=== PATIENT | female | born 1990 | race Caucasian/White ===

== ENCOUNTER → 2018-08-06 14:14 | Observation (INO) ==
[2018-08-06 12:17] LABS: Basophils % 0.1 %; Eosinophils # 0.1 K/mcL (0.0-0.6); Eosinophils % 0.5 %; Hematocrit 34.8 % (35.3-44.9); Hemoglobin 11.5 g/dL (11.5-15.4); Immature Granulocytes % 0.7 % (0-4); Lymphocytes # 1.4 K/mcL (0.6-4.6); Lymphocytes % 13.8 %; Mean Corpuscular Hemoglobin 30.5 pg (28.0-33.3); Mean Corpuscular Volume 92.3 fL (83.0-100.0); Mean Platelet Volume 10.8 fL (9.4-12.4); Monocytes # 0.4 K/mcL (0.0-1.3); Monocytes % 4.3 %; Neutrophils # 7.9 K/mcL (1.6-8.9); Platelet Count 201 K/mcL (140-400); Red Blood Count 3.77 M/mcL (3.82-4.97); Red Cell Distribution Width 14.5 % (11.5-14.5); Segmented Neutrophils % 80.6 %
[2018-08-06 12:20] LABS: Protein/Creatinine Ratio,Urine 0.16 mg/mg (0.00-0.20)
[2018-08-06 12:21] LABS: Amphetamine Screen,Urine Negative ng/mL (Cutoff=1000); Barbiturate Screen,Urine Negative ng/mL (Cutoff=200); Benzodiazepines Screen,Urine Negative ng/mL (Cutoff=200); Cannabinoid Screen,Urine Negative ng/mL (Cutoff = 50); Cocaine Screen,Urine Negative ng/mL (Cutoff= 300); Opiate Screen,Urine Negative ng/mL (Cutoff=300); Phencyclidine Screen,Urine Negative ng/mL (Cutoff=25)
[2018-08-06 12:24] LABS: Alanine Aminotransferase 13 Units/L (7-52); Aspartate Amino Transferase 13 Units/L (13-39); BUN/Creatinine Ratio 13 (6-26); Blood Urea Nitrogen 9 mg/dL (6-20); Lactate Dehydrogenase 118 Units/L (140-271); Uric Acid 5.4 mg/dL (2.3-7.6); eGFR For Non-African Americans > 60 (> 60)
--- NOTE | 2018-08-06 13:23 | Discharge Summary ---
Date of Encounter: 08/06/18 Time of Encounter: 13:23 - Discharge Diagnosis (1) 38 weeks gestation of Priority: Primary Status: Acute Comments: admit for observation (2) Elevated BP without diagnosis of hypertension Priority: Secondary Status: Acute Comments: normal PIH labs Normal protein creat ratio BPs and labs reviewed with Dr. Hurtado. Dr. Hurtado recommends discharge home and follow up with Dr. Forte as scheduled. (3) NST (non-stress test) reactive on surveillance Priority: Secondary Status: Acute Comments: RNST FHR baseline 150 bpm moderate variability +15x15 accels no decels noted. - Discharge Medications Home Medications: HydrOXYzine Pamoate [Vistaril] 25 mg PO HS 08/06/18 [History] Pnv Cmb#21/Iron/Folic Acid [ Complete Caplet] 1 each PO DAILY 08/06/18 [History] Ranitidine HCl [Zantac 75] 75 mg PO DAILY PRN 08/06/18 [History] Allergies/Adverse Reactions: Allergy/AdvReac Type Severity Reaction Status Date / Time No Known Allergies Allergy Verified 08/06/18 12:12 Data Procedures and tests throughout hospitalization: Laboratory Tests 08/06/18 08/06/18 08/06/18 11:48 11:48 11:48 WBC 9.8 RBC 3.77 L Hgb 11.5 Hct 34.8 L MCV 92.3 MCH 30.5 MCHC 33.0 RDW 14.5 Plt Count 201 MPV 10.8 Immature Gran % 0.7 Seg Neutrophils % 80.6 Lymphocytes % 13.8 Monocytes % 4.3 Eosinophils % 0.5 Basophils % 0.1 Neutrophils # 7.9 Lymphocytes # 1.4 Monocytes # 0.4 Eosinophils # 0.1 Basophils # 0.0 BUN Creatinine Est GFR ( Amer) Est GFR (Non-Af Amer) BUN/Creatinine Ratio Uric Acid AST ALT Lactate Dehydrogenase Urine Creatinine 222 Protein/Creatinin Ratio 0.16 Urine Total Protein 36 H Urine Opiates Screen Negative Ur Barbiturates Screen Negative Ur Phencyclidine Scrn Negative Ur Amphetamines Screen Negative U Benzodiazepines Scrn Negative Urine Cocaine Screen Negative U Marijuana (THC) Screen Negative Ur Drug Screen Interp See Below 08/06/18 11:48 WBC RBC Hgb Hct MCV MCH MCHC RDW Plt Count MPV Immature Gran % Seg Neutrophils % Lymphocytes % Monocytes % Eosinophils % Basophils % Neutrophils # Lymphocytes # Monocytes # Eosinophils # Basophils # BUN 9 Creatinine 0.69 Est GFR ( Amer) > 60 Est GFR (Non-Af Amer) > 60 BUN/Creatinine Ratio 13 Uric Acid 5.4 AST 13 ALT 13 Lactate Dehydrogenase 118 L Urine Creatinine Protein/Creatinin Ratio Urine Total Protein Urine Opiates Screen Ur Barbiturates Screen Ur Phencyclidine Scrn Ur Amphetamines Screen U Benzodiazepines Scrn Urine Cocaine Screen U Marijuana (THC) Screen Ur Drug Screen Interp Labs on day of discharge: Labs from last 24 hours 08/06/18 08/06/18 08/06/18 11:48 11:48 11:48 WBC 9.8 RBC 3.77 L Hgb 11.5 Hct 34.8 L MCV 92.3 MCH 30.5 MCHC 33.0 RDW 14.5 Plt Count 201 MPV 10.8 Immature Gran % 0.7 Seg Neutrophils % 80.6 Lymphocytes % 13.8 Monocytes % 4.3 Eosinophils % 0.5 Basophils % 0.1 Neutrophils # 7.9 Lymphocytes # 1.4 Monocytes # 0.4 Eosinophils # 0.1 Basophils # 0.0 BUN 9 Creatinine 0.69 Est GFR ( Amer) > 60 Est GFR (Non-Af Amer) > 60 BUN/Creatinine Ratio 13 Uric Acid 5.4 AST 13 ALT 13 Lactate Dehydrogenase 118 L Urine Creatinine 222 Protein/Creatinin Ratio 0.16 Urine Total Protein 36 H Urine Opiates Screen Ur Barbiturates Screen Ur Phencyclidine Scrn Ur Amphetamines Screen U Benzodiazepines Scrn Urine Cocaine Screen U Marijuana (THC) Screen Ur Drug Screen Interp 08/06/18 11:48 WBC RBC Hgb Hct MCV MCH MCHC RDW Plt Count MPV Immature Gran % Seg Neutrophils % Lymphocytes % Monocytes % Eosinophils % Basophils % Neutrophils # Lymphocytes # Monocytes # Eosinophils # Basophils # BUN Creatinine Est GFR ( Amer) Est GFR (Non-Af Amer) BUN/Creatinine Ratio Uric Acid AST ALT Lactate Dehydrogenase Urine Creatinine Protein/Creatinin Ratio Urine Total Protein Urine Opiates Screen Negative Ur Barbiturates Screen Negative Ur Phencyclidine Scrn Negative Ur Amphetamines Screen Negative U Benzodiazepines Scrn Negative Urine Cocaine Screen Negative U Marijuana (THC) Screen Negative Ur Drug Screen Interp See Below Date of admission: 08/06/18 11:25 Primary care physician: Lashawn Goodrich CNP Discharging clinician: Eloise Petit Anticipated date of discharge: 08/06/18 - Patient Status Disposition: Home, Self-Care Condition: Good Functional capacity at discharge: independent ambulation - Discharge Instructions Follow Up With: Lashawn Goodrich CNP [Primary Care Provider] - Kenji Forte MD [Partnered Physician] - - Diet and Activity Activity: increase activity as tolerated Diet: regular diet Hospital Course [employer] Hospital course: Patient is a 27 y/o at 38w3d sent to labor and delivery for PIH evaluation following a BP of 136/94 in office with 1+ protein on urine dip. Patient has had headache in the past but is easily relieved with tylenol or sleep. Patient denies any visual disturbances or epigastric pain. Patient reports good movement. All PIH labs including protein creat ratio, blood pressures discussed with Dr. Hurtado who recommends discharge home with PIH precautions and follow up with Dr. Forte as scheduled. Time Attestation: Total time spent providing and/or coordinating discharge services: Time Spent: Less than 30 minutes Exam - Constitutional General appearance IM: A&O X 3, pleasant, answers questions appropriately - Respiratory Respiratory exam: Present: CTAB - Cardiovascular Cardiovascular exam IM: Present: RRR, +S1, +S2 - GI/Abdominal GI/Abdominal exam IM: normal bowel sounds - Extremities Exam Extremities exam IM: Present: full ROM, normal capillary refill, pedal edema (1+ bilateral) - Neurological Exam Neurological exam: alert, oriented X3, reflexes normal - Skin Additional comments: FHR 150 bpm moderate variability +15x15 accels no decels noted. CAt. 1 tracing. - VTE Reasons for not Prescribing Prophylaxis: Treatment not Indicated - Low risk for VTE
== END | disposition home or self-care (01) ==
LOC: 1NENULAB
PROVIDERS: ADMIT Advanced Practice Midwife; ATTEND Advanced Practice Midwife